=== PATIENT | female | born 2005 | race Caucasian/White ===

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

== ENCOUNTER 2023-10-28 20:28 | Inpatient (IN) | payer OTHER ==
[~2023-10-28] VITALS: Ht 152.4 cm; Wt 39.9 kg
[2023-10-28 21:17] LABS: Source, Urine Clean Catch
[2023-10-28 21:19] LABS: Appearance, Urine Cloudy (Clear); Bilirubin, Urine Neg (Neg); Blood, Urine 5+ (Neg); Color, Urine Yellow (P-Yellow); Glucose Qualitative, Urine Neg (Neg); Ketones, Urine 1+ (Neg); Leukocyte Esterase, Urine 3+ (Neg); Nitrite, Urine Pos (Neg); Protein, Urine 3+ (Neg); Urobilinogen, Urine 1+ (Normal)
[2023-10-28 21:27] LABS: Bacteria Many /hpf; Mucus Light (0-Heavy); Squamous Epithelial Cells Many /hpf (Few); White Blood Cells, Urine 50-100 /hpf (0-5)
[2023-10-28] MEDS ORDERED: NS 1,000 ML IV SCH (22:45)
[2023-10-28] MEDS ORDERED: Ketorolac Tromethamine 15mg Vial IV ONE (22:50)
[2023-10-28 23:11] LABS: Hematocrit 41.9 % (33.0-51.0); Mean Corpuscular HGB 31.3 pg (26.0-34.0); Mean Corpuscular HGB Conc 33.4 g/dL (31.5-36.5); Mean Corpuscular Volume 94 fL (80-100); Mean Platelet Volume 10.5 fL (9.1-12.4); Platelet Count 253 K/mm3 (150-400); RDW Coefficient Variation 14.7 % (11.7-14.2); RDW Standard Deviation 51.1 fL (35.1-46.3); Red Blood Cell Count 4.48 M/mm3 (3.80-5.20); White Blood Cell Count 34.52 K/mm3 (4.00-11.30)
[2023-10-28 23:28] LABS: BAND PERCENT MAN 11 % (0-8); BASOPHILS PERCENT MAN 0 % (0-2); EOSINOPHILS PERCENT MAN 0 % (0-6); MONOCYTES ABSOLUTE MAN 1.72 K/mm3 (0.16-1.47); MONOCYTES PERCENT MAN 5 % (4-13); NEUTROPHILS ABSOLUTE MAN 32.79 K/mm3 (1.96-9.15); SEG NEUTROPHILS PERCENT MAN 84 % (41-73); TOTAL CELLS COUNTED 100
[2023-10-28 23:48] LABS: Albumin, Blood 3.6 g/dL (3.4-5.0); Bilirubin, Total 1.1 mg/dL (0.1-1.0); Bun/Creatinine Ratio 18.5 (12.0-20.0); Calcium, Blood 9.2 mg/dL (8.5-10.1); Creatinine, Blood 0.65 mg/dL (0.40-1.00); Globulin, Blood 3.6 g/dL (2.2-4.0); Potassium, Blood 3.3 mmol/L (3.5-5.5); Total Protein, Blood 7.2 g/dL (6.4-8.2)
[2023-10-29 00:06] LABS: Source, Urine Clean Catch
[2023-10-29 00:09] LABS: Appearance, Urine Hazy (Clear); Bilirubin, Urine Neg (Neg); Blood, Urine 5+ (Neg); Color, Urine Yellow (P-Yellow); Glucose Qualitative, Urine Neg (Neg); Ketones, Urine 1+ (Neg); Leukocyte Esterase, Urine 3+ (Neg); Nitrite, Urine Neg (Neg); Protein, Urine 2+ (Neg); Urobilinogen, Urine 2+ (Normal)
[2023-10-29 00:22] LABS: Bacteria Mod /hpf; Red Blood Cells, Urine 0-2 /hpf (0-2); Squamous Epithelial Cells Few /hpf (Few); White Blood Cells, Urine TNTC /hpf (0-5)
[2023-10-29] MEDS ORDERED: CefTRIAXone Sodium 1,000 MG in NS 100 ML IV ONE (00:30)
[2023-10-29] MEDS ORDERED: Ondansetron HCl 2 MG / ML 2ML Vial IV PRN (01:35)
[2023-10-29] MEDS ORDERED: Acetaminophen 325 MG TABLET PO PRN (01:35)
[2023-10-29] MEDS ORDERED: FentaNYL Citrate 50 MCG/ML 2 ML Injection IV PRN (01:35)
[2023-10-29] MEDS ORDERED: NS 1,000 ML IV SCH (01:35)
[2023-10-29] MEDS ORDERED: Potassium Chloride 40 MEQ in NS 250 ML IV ONE (01:40)
[2023-10-29 02:43] VITALS: BP 107/69
--- NOTE | 2023-10-29 02:55 | NUR ---
ADMIT NOTE HANDOFF RECEIVED FROM CAN RECONDITIONER ALKA. PT ARRIVED TO FLOOR VIA GURNEY. PT ORIENTED TO UNIT. CALL BUTTON WITHIN REACH. I HAVE CALLED LAB AND REQUESTED BLOOD CULTURES BE DRAWN, SO I CAN BEGIN THE ANTIB RX ADMINISTRATION. AWAITING PCU TO SEND OUR BATCH ATTENDANT.
[2023-10-29 03:15] LABS: Hematocrit 36.8 % (33.0-51.0); Hemoglobin 12.3 g/dL (11.5-16.0); Mean Corpuscular HGB 31.5 pg (26.0-34.0); Mean Corpuscular HGB Conc 33.4 g/dL (31.5-36.5); Mean Corpuscular Volume 94 fL (80-100); Mean Platelet Volume 10.8 fL (9.1-12.4); Platelet Count 220 K/mm3 (150-400); RDW Coefficient Variation 14.8 % (11.7-14.2); RDW Standard Deviation 51.8 fL (35.1-46.3); Red Blood Cell Count 3.91 M/mm3 (3.80-5.20); White Blood Cell Count 27.36 K/mm3 (4.00-11.30)
[2023-10-29 03:38] LABS: Albumin/Globulin Ratio 1.1 (0.8-1.8); Bilirubin, Total 1.1 mg/dL (0.1-1.0); Bun/Creatinine Ratio 19.8 (12.0-20.0); Calcium, Blood 8.7 mg/dL (8.5-10.1); Creatinine, Blood 0.56 mg/dL (0.40-1.00); Globulin, Blood 2.8 g/dL (2.2-4.0); Potassium, Blood 3.2 mmol/L (3.5-5.5); Total Protein, Blood 5.8 g/dL (6.4-8.2)
[2023-10-29 03:54] LABS: BAND PERCENT MAN 6 % (0-8); BASOPHILS PERCENT MAN 0 % (0-2); EOSINOPHILS ABSOLUTE MAN 0.27 K/mm3 (0.00-0.68); EOSINOPHILS PERCENT MAN 1 % (0-6); LYMPHOCYTES ABSOLUTE MAN 1.09 K/mm3 (0.84-5.20); LYMPHOCYTES PERCENT MAN 4 % (21-46); MONOCYTES ABSOLUTE MAN 0.54 K/mm3 (0.16-1.47); MONOCYTES PERCENT MAN 2 % (4-13); NEUTROPHILS ABSOLUTE MAN 25.44 K/mm3 (1.96-9.15); SEG NEUTROPHILS PERCENT MAN 87 % (41-73); TOTAL CELLS COUNTED 100
--- NOTE | 2023-10-29 04:51 | NUR ---
SHIFT SUMMARY ADMITTED FOR PYELEONEPHRITIS. FULL CODE. IV FLUIDS INFUSING. IV ANTIB RX ARE SCHEDULED. IV K+ GIVEN THIS SHIFT. PAIN RX GIVEN THIS SHIFT. SHE IS ON RA, A&O X4. SHE IS NPO. SHE DID HAVE NAUSEA IN THE ER. TELEMETRY: NSR @ 97 BPM. BLOOD CULTURES DRAWN THIS SHIFT.
[2023-10-29 05:04] VITALS: BP 91/63
[2023-10-29] MEDS ORDERED: Vancomycin HCL 1,000 MG in NS 100 ML IV ONE (07:55)
[2023-10-29 08:16] VITALS: BP 104/68
[2023-10-29] MEDS ORDERED: Enoxaparin 40 MG/0.4 ML SYR SC SCH (09:00)
[2023-10-29] MEDS ORDERED: Potassium Chloride 20 MEQ TabCR PO ONE (09:00)
[2023-10-29 10:48] VITALS: BP 94/66
--- NOTE | 2023-10-29 10:54 | NUR ---
PATIENT REPORTS THAT HER HEAD AND FACE FEELS ITCHY SINCE STARTING THE VANCO. DENIED THROAT SWELLING. VITALS WNL FOR PATIENT WITH TEMP 99.8. VANCO STOPPED. COLD RAG AND FAN GIVEN TO PATIENT. PROVIDER NOTIFIED.
[2023-10-29] MEDS ORDERED: DiphenhydrAMINE HCl 50 MG/ML 1ML Vial IV STA (10:56)
[2023-10-29 15:11] VITALS: BP 102/65
--- NOTE | 2023-10-29 16:16 | NUR ---
SHIFT SUMMARY A&O, INDEPENDENT IN ROOM. TELEMETRY EVEN OF SVT FROM 1541 TO 1545, HR IN THE 150-160'S. PATIENT WAS IN THE BATHROOM AT THAT TIME. NO ACUTE EVENTS THIS SHIFT. MEDICATION WITH APAP FOR LOW BACK PAIN. PATIENT'S FAMILY AT BEDSIDE. CALLS APPROPRIATELY. CALL LIGHT WITHIN REACH.
[2023-10-29] MEDS ORDERED: CEFP200 PO (17:30)
--- NOTE | 2023-10-29 17:49 | NUR ---
DISCHARGE REVIEWED DISCHARGE PACKET WITH PATIENT AND HER FATHER. VERIFIED THAT THE [facility] WAS WORKING ON HER ABX PRESCRIPTION. PATIENT DENIED ANY QUESTIONS OR CONCERNS. IV AND TELE REMOVED. VAPE PEN RETURNED. DISCHARGED AT 1745.
--- NOTE | 2023-10-29 18:30 | NUR ---
ANTIBIOTIC RECEIVEDCALL FROM [facility]. PT UNABLE TO PAY THE [facility] PAY FOR VANTIN. CALLED DR MORLEY. HE STATED HE WOULD SEND IN A NEW SCRIPT. CALLED PT FATHER AND TOLD HIM. CARE ONGOING.
[2023-10-29] MEDS ORDERED: Trimethoprim/Sulfamethoxazole DS Tab PO SCH (21:00)
[2023-10-29] MEDS ORDERED: CefTRIAXone Sodium 1,000 MG in NS 100 ML IV SCH (21:00)
[2023-10-30] MEDS ORDERED: CefTRIAXone Sodium 1,000 MG in NS 100 ML IV SCH (06:00)
[2023-10-30] MEDS ORDERED: Enoxaparin 30 MG/0.3 ML SYR SC SCH (09:00)
== END 2023-10-29 17:46 | disposition home or self-care (01) | DRG 872 ==
LOC: ER 20:28 → MEDS 10-29 01:01
PROVIDERS: Emergency Medicine; Physician Assistant; ADMIT Internal Medicine
DX: A41.51 Sepsis due to Escherichia coli [E. coli] (principal); N10 Acute pyelonephritis
CPT/HCPCS: 36415; 76770; 80053; 81001; 81025; 83605; 83735; 85025; 87040; 87077; 87086; 87186; 96361; 96374; 96375; 99285-25; A9270; G0378; J0696; J1200; J1885; J2405; J3010; J3370; J3480; J7030; J7050

== ENCOUNTER → 2024-02-14 | Outpatient (CLI) | payer OTHER ==
[~2024-02-14] MED LIST: CEFP200 PO; CEPH500 PO
[2024-02-17 12:24] LABS: Campylobacter Sp Not Detected (NOT DETECT)
[2024-02-17 12:25] LABS: Adenovirus F 40/41 Not Detected (NOT DETECT); Astrovirus Not Detected (NOT DETECT); Cryptosporidium Not Detected (NOT DETECT); Cyclospora Cayetanensis Not Detected (NOT DETECT); E. Coli O157 Not Detected (NOT DETECT); Entamoeba Histolytica Not Detected (NOT DETECT); Enteroaggregative E. coli-EAEC Not Detected (NOT DETECT); Enteropathogenic E. coli-EPEC Not Detected (NOT DETECT); Enterotoxigenic E. coli-ETEC Not Detected (NOT DETECT); Giardia Lamblia Not Detected (NOT DETECT); Norovirus GI/GII Not Detected (NOT DETECT); Plesiomonas Shigelloides Not Detected (NOT DETECT); Rotavirus A Not Detected (NOT DETECT); Salmonella Sp Not Detected (NOT DETECT); Sapovirus Not Detected (NOT DETECT); Shiga Toxin-prod E. coli-STEC Not Detected (NOT DETECT); Shigella/Enteroin E. coli-EIEC Not Detected (NOT DETECT); Vibrio Cholerae Not Detected (NOT DETECT); Vibrio Sp Not Detected (NOT DETECT); Yersinia Enterocolitica Not Detected (NOT DETECT)
== END ==
LOC: LAB SHORT 09:05 → LAB 09:05
PROVIDERS: Student in an Organized Health Care Education/Training Program
DX: R19.7 Diarrhea, unspecified (principal)
CPT/HCPCS: 87507

== ENCOUNTER 2024-02-22 13:58 | Emergency (ER) | payer OTHER ==
[~2024-02-22] VITALS: Ht 154.9 cm; Wt 40.8 kg
[~2024-02-22 13:58] MED LIST changes: -CEPH500 PO
[2024-02-22 14:06] VITALS: BP 147/98
[2024-02-22] MEDS ORDERED: Ondansetron HCl 2 MG / ML 2ML Vial IV ONE (14:10)
[2024-02-22 14:35] LABS: BASOPHILS ABSOLUTE AUTO 0.08 K/mm3 (0.00-0.23); BASOPHILS PERCENT AUTO 1 % (0-2); EOSINOPHILS ABSOLUTE AUTO 0.04 K/mm3 (0.00-0.68); EOSINOPHILS PERCENT AUTO 0 % (0-6); Hemoglobin 14.1 g/dL (11.5-16.0); IMMATURE GRAN ABSOLUTE AUTO 0.04 K/mm3 (0.00-0.10); IMMATURE GRAN PERCENT AUTO 0 % (0-1); LYMPHOCYTES PERCENT AUTO 14 % (21-46); MONOCYTES ABSOLUTE AUTO 0.68 K/mm3 (0.16-1.47); MONOCYTES PERCENT AUTO 5 % (4-13); Mean Corpuscular HGB 31.3 pg (26.0-34.0); Mean Corpuscular HGB Conc 34.4 g/dL (31.5-36.5); Mean Corpuscular Volume 91 fL (80-100); Mean Platelet Volume 10.8 fL (9.1-12.4); NEUTROPHILS ABSOLUTE AUTO 10.34 K/mm3 (1.96-9.15); NEUTROPHILS PERCENT AUTO 80 % (41-73); Platelet Count 323 K/mm3 (150-400); RDW Coefficient Variation 13.6 % (11.7-14.2); RDW Standard Deviation 45.8 fL (35.1-46.3); White Blood Cell Count 12.98 K/mm3 (4.00-11.30)
[2024-02-22 14:44] LABS: Albumin, Blood 4.4 g/dL (3.4-5.0); Albumin/Globulin Ratio 1.4 (0.8-1.8); Bilirubin, Total 0.4 mg/dL (0.1-1.0); Bun/Creatinine Ratio 13.3 (12.0-20.0); Calcium, Blood 9.5 mg/dL (8.5-10.1); Creatinine, Blood 0.53 mg/dL (0.40-1.00); Globulin, Blood 3.2 g/dL (2.2-4.0); Potassium, Blood 3.4 mmol/L (3.5-5.5); Total Protein, Blood 7.6 g/dL (6.4-8.2)
[2024-02-22 15:37] LABS: Source, Urine Clean Catch
[2024-02-22] MEDS ORDERED: NS 1,000 ML IV SCH (15:40)
[2024-02-22 15:49] LABS: Appearance, Urine Cloudy (Clear); Bilirubin, Urine Neg (Neg); Blood, Urine 3+ (Neg); Color, Urine Yellow (P-Yellow); Glucose Qualitative, Urine Neg (Neg); Ketones, Urine 4+ (Neg); Leukocyte Esterase, Urine 2+ (Neg); Nitrite, Urine Neg (Neg); Protein, Urine 2+ (Neg); Specific Gravity, Urine 1.015 (1.003-1.022); Urobilinogen, Urine NORM (Normal)
[2024-02-22] MEDS ORDERED: DiphenhydrAMINE HCl 50 MG/ML 1ML Vial IV ONE (16:05)
[2024-02-22] MEDS ORDERED: Metoclopramide HCl 5MG / ML 2ML Vial IV ONE (16:05)
[2024-02-22 16:19] LABS: Amorphous Heavy (0-Heavy); Bacteria Many /hpf; Mucus Light (0-Heavy); Squamous Epithelial Cells Few /hpf (Few); White Blood Cells, Urine 50-100 /hpf (0-5)
[2024-02-22] MEDS ORDERED: CefTRIAXone Sodium 1,000 MG in NS 100 ML IV ONE (16:25)
[2024-02-22] MEDS ORDERED: CEPH500 PO (17:12)
== END 2024-02-22 17:26 | disposition home or self-care (01) ==
LOC: ER 13:58
PROVIDERS: Emergency Medicine
DX: N12 Tubulo-interstitial nephritis, not specified as acute or chronic (principal); Z88.1 Allergy status to other antibiotic agents; Z91.018 Allergy to other foods
CPT/HCPCS: 74177; 80053; 81001; 81025; 83690; 83735; 85025; 87077; 87086; 87186; 96365-59; 96375; 99284-25; J0696; J1200; J2405; J2765; J7030; Q9967

== ENCOUNTER 2024-08-23 20:54 | Emergency (ER) | payer OTHER ==
[~2024-08-23] VITALS: Ht 152.4 cm; Wt 40.8 kg
[~2024-08-23 20:54] MED LIST changes: +CEPH500 PO
[2024-08-23 20:57] VITALS: BP 133/92
[2024-08-23 21:35] LABS: Source, Urine Clean Catch
[2024-08-23 21:35] LABS: BASOPHILS ABSOLUTE AUTO 0.09 K/mm3 (0.00-0.23); BASOPHILS PERCENT AUTO 1 % (0-2); EOSINOPHILS ABSOLUTE AUTO 0.02 K/mm3 (0.00-0.68); EOSINOPHILS PERCENT AUTO 0 % (0-6); Hematocrit 41.6 % (33.0-51.0); Hemoglobin 14.2 g/dL (11.5-16.0); IMMATURE GRAN ABSOLUTE AUTO 0.03 K/mm3 (0.00-0.10); IMMATURE GRAN PERCENT AUTO 0 % (0-1); LYMPHOCYTES ABSOLUTE AUTO 2.34 K/mm3 (0.84-5.20); LYMPHOCYTES PERCENT AUTO 18 % (21-46); MONOCYTES ABSOLUTE AUTO 0.95 K/mm3 (0.16-1.47); MONOCYTES PERCENT AUTO 7 % (4-13); Mean Corpuscular HGB 31.1 pg (26.0-34.0); Mean Corpuscular HGB Conc 34.1 g/dL (31.5-36.5); Mean Corpuscular Volume 91 fL (80-100); Mean Platelet Volume 10.5 fL (9.1-12.4); NEUTROPHILS ABSOLUTE AUTO 9.93 K/mm3 (1.96-9.15); NEUTROPHILS PERCENT AUTO 74 % (41-73); Platelet Count 324 K/mm3 (150-400); RDW Coefficient Variation 13.2 % (11.7-14.2); RDW Standard Deviation 44.6 fL (35.1-46.3); Red Blood Cell Count 4.57 M/mm3 (3.80-5.20); White Blood Cell Count 13.36 K/mm3 (4.00-11.30)
[2024-08-23 21:38] LABS: Bilirubin, Urine Neg (Neg); Blood, Urine Neg (Neg); Glucose Qualitative, Urine Neg (Neg); Ketones, Urine Neg (Neg); Leukocyte Esterase, Urine 1+ (Neg); Nitrite, Urine Neg (Neg); Protein, Urine Neg (Neg); Specific Gravity, Urine 1.005 (1.003-1.022); Urobilinogen, Urine NORM (Normal)
[2024-08-23 21:50] LABS: Appearance, Urine Clear (Clear); Bacteria Few /hpf; Color, Urine Yellow (P-Yellow); Red Blood Cells, Urine Not Seen /hpf (0-2); Squamous Epithelial Cells Few /hpf (Few); White Blood Cells, Urine 0-2 /hpf (0-5)
[2024-08-23 21:55] LABS: Albumin, Blood 4.5 g/dL (3.4-5.0); Albumin/Globulin Ratio 1.4 (0.8-1.8); Bilirubin, Total 0.3 mg/dL (0.1-1.0); Bun/Creatinine Ratio 11.9 (12.0-20.0); Calcium, Blood 9.8 mg/dL (8.5-10.1); Creatinine, Blood 0.51 mg/dL (0.40-1.00); Globulin, Blood 3.2 g/dL (2.2-4.0); Potassium, Blood 3.3 mmol/L (3.5-5.5); Total Protein, Blood 7.7 g/dL (6.4-8.2)
[2024-08-23] MEDS ORDERED: Ketorolac Tromethamine 15mg Vial IV ONE (22:55)
[2024-08-23] MEDS ORDERED: Dexamethasone Sod Phos 10 MG/ML 1ML VIAL PO ONE (22:55)
[2024-08-23] MEDS ORDERED: Potassium Chloride 20 MEQ TabCR PO ONE (22:55)
== END 2024-08-23 23:30 | disposition home or self-care (01) ==
LOC: ER 20:54
PROVIDERS: Physician Assistant
DX: N20.2 Calculus of kidney with calculus of ureter (principal); R10.9 Unspecified abdominal pain; Z88.3 Allergy status to other anti-infective agents; Z91.018 Allergy to other foods; Z79.2 Long term (current) use of antibiotics
CPT/HCPCS: 76770; 80053; 81001; 84703; 85025; 96374; 99284-25; A9270; J1100; J1885

== ENCOUNTER → 2024-09-10 | Outpatient (CLI) | payer OTHER | LOC: LAB 09:15 → LAB SHORT 09:15 | DX: J02.9 Acute pharyngitis, unspecified (principal) | CPT/HCPCS: 87081 ==

== ENCOUNTER 2024-10-31 16:10 | Emergency (ER) | payer OTHER ==
[~2024-10-31] VITALS: Ht 154.9 cm; Wt 44.5 kg
[2024-10-31 16:40] VITALS: BP 128/75
== END 2024-10-31 18:30 ==
LOC: ER 16:10
DX: N91.2 Amenorrhea, unspecified (principal); Z79.899 Other long term (current) drug therapy; Z88.1 Allergy status to other antibiotic agents; Z91.018 Allergy to other foods
CPT/HCPCS: 84703; 99282

== ENCOUNTER 2025-03-31 03:51 | Observation (INO) | payer OTHER ==
[~2025-03-31] VITALS: Ht 152.4 cm; Wt 40.8 kg
[~2025-03-31 03:51] MED LIST changes: +ONDA4ODT MM
[2025-03-31] MEDS ORDERED: MIRTAZAPINE7.5 M1 PO (04:21)
[2025-03-31] MEDS ORDERED: OMEP20ER PO (04:21)
[2025-03-31 04:33] LABS: Source, Urine Clean Catch
[2025-03-31 04:38] LABS: BASOPHILS ABSOLUTE AUTO 0.08 K/mm3 (0.00-0.23); BASOPHILS PERCENT AUTO 1 % (0-2); EOSINOPHILS ABSOLUTE AUTO 0.02 K/mm3 (0.00-0.68); EOSINOPHILS PERCENT AUTO 0 % (0-6); Hematocrit 39.6 % (33.0-51.0); Hemoglobin 14.0 g/dL (11.5-16.0); IMMATURE GRAN ABSOLUTE AUTO 0.03 K/mm3 (0.00-0.10); IMMATURE GRAN PERCENT AUTO 0 % (0-1); LYMPHOCYTES ABSOLUTE AUTO 2.51 K/mm3 (0.84-5.20); LYMPHOCYTES PERCENT AUTO 24 % (21-46); MONOCYTES ABSOLUTE AUTO 0.68 K/mm3 (0.16-1.47); MONOCYTES PERCENT AUTO 7 % (4-13); Mean Corpuscular HGB Conc 35.4 g/dL (31.5-36.5); Mean Corpuscular Volume 89 fL (80-100); NEUTROPHILS ABSOLUTE AUTO 7.03 K/mm3 (1.96-9.15); NEUTROPHILS PERCENT AUTO 68 % (41-73); NRBC ABSOLUTE 0.00 K/mm3 (0.00-0.02); NRBC Auto 0.0 /100 WBC (0.0-0.2); Platelet Count 320 K/mm3 (150-400); RDW Coefficient Variation 13.3 % (11.7-14.2); RDW Standard Deviation 43.5 fL (35.1-46.3)
[2025-03-31 04:48] LABS: Bilirubin, Urine Neg (Neg); Glucose Qualitative, Urine Neg (Neg); Ketones, Urine Neg (Neg); Leukocyte Esterase, Urine Neg (Neg); Protein, Urine 2+ (Neg); Specific Gravity, Urine 1.010 (1.003-1.022); Urobilinogen, Urine NORM (Normal)
[2025-03-31 05:00] LABS: Ethanol (Alcohol), Blood, Med 162 mg/dL; Salicylate <1.7 mg/dL (2.8-20.0)
[2025-03-31 05:05] LABS: Acetaminophen, Random <2.0 ug/mL (10.0-30.0); Alanine Aminotransfer (ALT/SGP 28 U/L (12-78); Albumin, Blood 4.5 g/dL (3.4-5.0); Albumin/Globulin Ratio 1.4 (0.8-1.8); Anion Gap 12 mmol/L (3-11); Aspartate Aminotrans (AST/SGOT 24 U/L (12-37); Bilirubin, Total 0.5 mg/dL (0.1-1.0); Blood Urea Nitrogen 3 mg/dL (8-24); CO2, Blood 22 mmol/L (21-32); Calcium, Blood 9.0 mg/dL (8.5-10.1); Chloride, Blood 111 mmol/L (98-108); Creatinine, Blood 0.48 mg/dL (0.40-1.00); Globulin, Blood 3.2 g/dL (2.2-4.0); Glucose, Blood 115 mg/dL (70-99); Potassium, Blood 3.7 mmol/L (3.5-5.5); Sodium, Blood 141 mmol/L (136-145); Total Protein, Blood 7.7 g/dL (6.4-8.2)
[2025-03-31 05:06] LABS: Color, Urine Pale Yellow (P-Yellow)
[2025-03-31 05:07] LABS: Red Blood Cells, Urine 0-2 /hpf (0-2); White Blood Cells, Urine 0-2 /hpf (0-5)
[2025-03-31 07:32] LABS: U Amphetamine Screen Not Detected; U Barbituate Screen Not Detected; U Benzodiazapine Screen Not Detected; U Buprenorphine Screen Not Detected; U Cannabinoids Screen DETECTED; U Cocaine Screen Not Detected; U Methadone Screen Not Detected; U Methamphetamine Screen Not Detected; U Opiates Screen Not Detected; U Oxycodone Screen Not Detected; U Phencyclidine Screen Not Detected
[2025-03-31 09:04] VITALS: BP 97/62
== END 2025-03-31 11:16 | disposition other institution (70) ==
LOC: ER 03:51 → EOR 03:52
PROVIDERS: ADMIT Student in an Organized Health Care Education/Training Program
DX: F32.A Depression, unspecified (principal); Z88.1 Allergy status to other antibiotic agents; Z91.018 Allergy to other foods; Z79.899 Other long term (current) drug therapy
CPT/HCPCS: 36415; 73130; 80053; 80320; 81001; 81025; 85025; 99285-25; A9270; G0378; G0480

== ENCOUNTER 2025-03-31 09:09 | Inpatient (IN) | payer OTHER ==
[~2025-03-31] VITALS: Ht 152.4 cm; Wt 37.2 kg
[~2025-03-31 09:09] MED LIST changes: +MIRTAZAPINE7.5 M1 PO; +OMEP20ER PO
[2025-03-31] MEDS ORDERED: FLU VACC TS2025-26(6MOS UP)/PF 45 MCG/0.5 ML SYRINGE IM SCH (10:25)
[2025-03-31] MEDS ORDERED: DiphenhydrAMINE HCl 50 MG/ML 1ML Vial IM PRN (10:25)
[2025-03-31] MEDS ORDERED: Polyethylene Glycol 3350 17 gm PO PRN (10:30)
[2025-03-31] MEDS ORDERED: LORazepam 2 MG/ML 1ML Injection IM PRN (10:30)
[2025-03-31] MEDS ORDERED: Ondansetron 4 MG SoluTab MM PRN (10:30)
[2025-03-31] MEDS ORDERED: Haloperidol Lactate Inj. 5 MG/ML Injection IM PRN ×2 (10:30→10:40)
[2025-03-31] MEDS ORDERED: Aluminum Hydroxide 320MG/5ML 473 ML PO PRN (10:35)
[2025-03-31 11:31] VITALS: BP 99/70
[2025-03-31 12:05] VITALS: BP 99/70
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
--- NOTE | 2025-03-31 16:51 | NUR ---
SHIFT SUMMARY PT A/O X4; PLEASANT AND COOPERATIVE WITH CARE. SHE DENIES CURRENT SI, HI, AVTH. EVEN THOUGH SHE DOES NOT CURRENTLY ENDORSE SI, SHE SAYS THAT SHE DOESN'T FEEL SAFE IF SHE WERE TO LEAVE THE HOSPITAL RIGHT NOW. SHE BECAME SOMEWHAT OVERWHELMED AFTER ATTENDING GROUP, BECAME TEARFUL AND WANTED TO LEAVE. PT TALKED TO COLLEGE ADVISOR AND IS AGREEABLE TO STAY AND TALK WITH THE PSYCHIATRIST TOMORROW.
[2025-03-31 20:02] VITALS: BP 112/82
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
[2025-04-01 08:03] LABS: CHOL/HDL RATIO 2.3; Cholesterol 113 mg/dL (50-200); HDL Cholesterol 50 mg/dL (>39); LDL/HDL RATIO 1.0; Low Density Lipoprotein Chol 51 mg/dL (0-110); Triglycerides 59 mg/dL (30-140); Very Low Density Lipoprot Chol 11 mg/dL (6-28)
[2025-04-01] MEDS ORDERED: Multivitamins 1 Tab PO SCH ×2 (09:00→11:45)
[2025-04-01 09:05] VITALS: BP 112/76
--- NOTE | 2025-04-01 12:04 | NUR ---
NURSE NOTE WHEN CHECKING ON PT, SHE WAS FOUND BY THIS RN LAYING IN BED AWAKE. SHE WAS ENCOURAGED TO GO TO GROUP AND THEN PT GOT IRRITATED AND REFUSED. SHE STATES SHE IS NOT GOING TO BENEFIT FROM BEING IN U AND THE GROUPS WILL NOT HELP HER. SHE GOT AGITATED AND STOPPED OUT OF HER ROOM AND STOMPED DOWN THE HALLWAY AND SAT ON THE FLOOR. SHE THEN WENT BACK DOWN THE CALERO TO HER ROOM AND THE IMMIGRATION PATROL INSPECTOR ATTEMPTED TO SPEAK TO PT AND PT STARTED YELLING AT HER. PT DEMANDING THAT SHE WANTS TO LEAVE. PT EVENTUALLY LET INTO THE SENSORY ROOM BY IMMIGRATION PATROL INSPECTOR.
[2025-04-01 13:08] LABS: Anion Gap 11.0 mmol/L (3-11); Blood Urea Nitrogen 10.0 mg/dL (8-24); CO2, Blood 27.0 mmol/L (21-32); Calcium, Blood 9.3 mg/dL (8.5-10.1); Chloride, Blood 108.0 mmol/L (98-108); Creatinine, Blood 0.65 mg/dL (0.40-1.00); Glucose, Blood 95.0 mg/dL (70-99); Magnesium, Blood 2.3 mg/dL (1.6-2.4); Phosphorus, Blood 5.3 mg/dL (2.5-4.9); Potassium, Blood 3.8 mmol/L (3.5-5.5); Sodium, Blood 142.0 mmol/L (136-145)
--- NOTE | 2025-04-01 13:56 | NUR ---
SHIFT SUMMARY PT DECLINED TO GO TO GROUPS THIS SHIFT. SHE WOULD INTERACT WITH OTHER PEERS IN THE MILIEU AND AMBULATE THE HALLWAYS. SHE ATE 90% OF BREAKFAST AND 100% OF LUNCH. SHE WAS CONSULTED WITH THE ACCESS LEAD. SHE HAD AN ACUTE EPISODE JUST BEFORE LUNCH AND NEEDED ALONE TIME IN THE SENSORY ROOM (SEE NURSE NOTE). SHE RATED MASS=15 AND WAS REFUSING PRN MEDICATIONS. SHE WAS SLIGHTLY MORE CALM AFTER LUNCH AND ASKED FOR ANTIANXIETY MEDICATION OF ZYPREXA AND THIS RN PROVIDED THE MEDICATION PT WAS STILL VERY ANXIOUS AFTER LUNCH. MD WAS NOTIFIED OF PT WANTING TO D/C AND GETTING UPSET ABOUT THIS, OF THIS TIME PT HAS NOT REQUESTED AN AMA.
[2025-04-01 19:16] VITALS: BP 116/89
--- NOTE | 2025-04-02 04:08 | NUR ---
SHIFT SUMMARY PT PRESENT IN MILIEU AT START OF SHIFT. DENIES ANY SI, HI, THOUGHTS OF SELF HARM OR AVTH. DENIES ANY ANXIETY AT TIME OF ASSESSMENT. PT INTERACTING WITH PEERS AND STAFF, REPORTS HER MOOD "GOOD" AND AFFECT IS CONGRUENT TO STATED MOOD. HAD EVENING SNACK AND WAS COMPLIANT WITH SCHEDULED MED. SHE TOOK A SHOWER AND WATCHED TV BEFORE GOING TO BED. SHE HAS REMAINED IN BED THROUGHOUT THE NIGHT. Q15 MINUTE CHECKS TO CONTINUE PER PT SAFETY.
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
--- NOTE | 2025-04-02 08:52 | NUR ---
SHIFT ASSESSMENT: PT REPORTED NAUSEA, SHE DENIED SI, HI AND AVH. PT ENDORSED ANXIETY AND PAIN WHICH SHE RELATED TO NAUSEA. PT REPORTED HER MOOD , "IT'S OK." HER AFFECT WAS CONGRUENT WITH HER STATED MOOD. HER GOALS TODAY ARE, "TO GET OUTA HERE." SHE CONSUMED HER MEDS AND THEN SHE ATE A SODA CRACKER AND THEN REPORTED THAT SHE VOMITED. NO PILLS OR CRACKERS NOTED IN THE TOILET. PT DRANK SOME PEPPERMINT TEA INSTEAD OF EATING BREAKFAST. SHE IS CURRENTLY RESTING ON HER BED. Q15 MINUTES SAFETY CHECKS FOR PT SAFETY.
[2025-04-02 09:49] VITALS: BP 139/103
--- NOTE | 2025-04-02 10:51 | NUR ---
IMPORTANT DISCHARGE INFORMATION PATIENT IS BEING DISCHARGED TODAY. HER FATHER "PATY" IS COMING TO PICK HER UP AROUND 11AM. ALL PARTIES VERBALIZE AN UNDERSTANDING. FOLLOW UP APPOINTMENTS WITH [facility] ON 04/09/25 AT 2:40PM DR. SALAZAR. THIS NURSE SUBMITTED REQUESTT FOR MENTAL HEALTH REFERRAL/ASSESSMENT GENE DAY. [facility] IS AVAILABLE FOR CONTINUED MENTAL HEALTH SERVICES. PHARMACY: [facility] [phone]
[2025-04-02] MEDS ORDERED: MULVITA PO (11:38)
[2025-04-02] MEDS ORDERED: VITAMIN B-1100 MG PO (11:39)
[2025-04-02 12:06] LABS: Magnesium, Blood 2.2 mg/dL (1.6-2.4)
[2025-04-02 12:19] LABS: Anion Gap 10.0 mmol/L (3-11); Blood Urea Nitrogen 9.0 mg/dL (8-24); CO2, Blood 26.0 mmol/L (21-32); Calcium, Blood 9.4 mg/dL (8.5-10.1); Chloride, Blood 102.0 mmol/L (98-108); Creatinine, Blood 0.53 mg/dL (0.40-1.00); Glucose, Blood 111.0 mg/dL (70-99); Phosphorus, Blood 2.0 mg/dL (2.5-4.9); Potassium, Blood 3.8 mmol/L (3.5-5.5); Sodium, Blood 134.0 mmol/L (136-145)
--- NOTE | 2025-04-02 13:13 | NUR ---
PATIENT WAS DISCHARGED AT 1251. HER FATHER PICKED HER UP AND TRANSPORTED HER TO HIS HOME. THE PATIENT IS AWARE OF THE POST DISCHARGE APPT. THAT HAVE BEEN SET UP. HER MEDICATIONS WERE FAXED TO [facility]. THE PATIENT AND THIS RISK CONTROL OFFICER REVIEWD ALL DISCHARGE PAPERWORK TOGETHER, INCLUDING HER SAFETY PLAN. THE LAB RESULTS THAT WERE OBTAINED DURING THIS VISIT WERE PRINTED AND INCLUDED IN HER PACKET. ALL BELONGINGS WERE RETURNED AND SIGNED FOR.
== END 2025-04-02 12:51 | disposition home or self-care (01) | DRG 885 ==
LOC: BHU 09:09
PROVIDERS: ADMIT Psychiatry & Neurology Psychiatry
DX: F33.1 Major depressive disorder, recurrent, moderate (principal); R45.851 Suicidal ideations; F43.25 Adjustment disorder with mixed disturbance of emotions and conduct; Z87.440 Personal history of urinary (tract) infections; Z91.018 Allergy to other foods; Z88.1 Allergy status to other antibiotic agents
CPT/HCPCS: 36415; 80048; 80061; 83036; 83735; 84100; A9270